=== PATIENT | female | born 1935 ===

== ENCOUNTER 2016-11-26 16:13 | Emergency (ER) | payer MEDICARE, MEDICAID ==
[2015-05-23 12:14] VITALS: BMI 21.5
[2016-11-26 21:52] LABS: ALB/GLOB RATIO 1.5 (1.0-2.1); ALKALINE PHOSPHATASE 135 U/L (38-126); ALT/SGPT 88 U/L (9-52); AST/SGOT 80 U/L (14-36); BILIRUBIN,TOTAL 0.5 mg/dL (0.2-1.3); BLOOD UREA NITROGEN 28 mg/dL (7-17); CALCIUM 8.3 mg/dl (8.6-10.4); CARBON DIOXIDE 23 mmol/L (22-30); CHLORIDE 94 mmol/L (98-107); GFR AFRICAN-AMERICAN 52; GLUCOSE,RANDOM 116 mg/dL (65-105); POTASSIUM 3.4 mmol/L (3.6-5.2); SODIUM 129 mmol/L (132-148); TOTAL PROTEIN 6.7 g/dL (6.3-8.3)
[2016-11-26 21:58] LABS: BASO # 0.1 K/uL (0.0-0.2); BASO % 0.6 % (0.0-2.0); EOS # 0.1 K/uL (0.0-0.7); EOS % 0.9 % (0.0-4.0); HEMATOCRIT 31.1 % (34.0-47.0); LYMPH # 1.7 K/uL (1.0-4.3); LYMPH % 15.2 % (20.0-40.0); MEAN CELL VOLUME 82.6 fL (81.0-99.0); MEAN CORPUSCULAR HGB CONC 32.8 g/dL (33.0-37.0); MONO # 0.9 K/uL (0.0-0.8); RED CELL DISTRIBUTION WIDTH 15.2 % (11.5-14.5); WHITE BLOOD COUNT 10.9 K/uL (4.8-10.8)
[2016-11-27 06:03] LABS: URINE BILIRUBIN NEGATIVE (NEGATIVE); URINE BLOOD NEGATIVE (NEGATIVE); URINE COLOR YELLOW (YELLOW); URINE GLUCOSE (UA) Normal (Normal); URINE KETONE NEGATIVE (NEGATIVE); URINE LEUKOCYTE ESTERASE NEGATIVE Leu/uL (Negative); URINE PROTEIN NEGATIVE (NEGATIVE); URINE UROBILINOGEN Normal mg/dL (0.2-1.0); WBC URINE 1 /hpf (0-5)
--- NOTE | 2016-11-27 10:13 | RAD ---
PROCEDURE: CHEST RADIOGRAPH, 1 VIEW HISTORY: SOB COMPARISON: 02/19/2011 FINDINGS: LUNGS: No infiltrate. Calcified granuloma at right base. PLEURA: No pneumothorax or pleural fluid seen. CARDIOVASCULAR: Normal. OSSEOUS STRUCTURES: No significant abnormalities. VISUALIZED UPPER ABDOMEN: Normal. OTHER FINDINGS: None. IMPRESSION: No active disease.
== END 2016-11-26 20:35 | disposition home or self-care (01) ==
LOC: C.ER 16:13
DX: R06.09 Other forms of dyspnea (principal); R06.01 Orthopnea
CPT/HCPCS: 71010; 80053; 81001; 82550; 83880; 84484; 85025; 85610; 85730; 96374; 99285; J1940

== ENCOUNTER 2017-08-14 11:22 | Emergency (ER) | payer MEDICARE, MEDICAID ==
[2017-08-14 11:23] VITALS: BMI 21.5
[2017-08-14 11:28] VITALS: RESP 18
[2017-08-14] MEDS ORDERED: Sucralfate 1 gm/10 ml Oral Susp UD PO STA (11:48)
[2017-08-14] MEDS ORDERED: Sodium Chloride 0.9% 1,000 ML IV ONE (11:49)
--- NOTE | 2017-08-14 11:53 | C.PDOC ---
History Of Present Illness 81 yr old female with PMHx of reflux, presents to the ER with upper abdomen pain , nausea, diarrhea and sore throat since yesterday., Patient believes the sore throat is due to reflux. Patient reports she was on Prevacid but was told not to take it anymore by her PMD due to kidney function and was put on pepcid but reports no help. Patient denies fever, chills, chest pain, SOB, vomiting, dysuria, weakness or numbness. Time Seen by Provider: 08/14/17 11:31 Chief Complaint (Nursing): Abdominal Pain History Per: Patient History/Exam Limitations: no limitations Onset/Duration Of Symptoms: Days (1) Past Medical History Reviewed: Historical Data, Nursing Documentation, Vital Signs Vital Signs: Last Vital Signs Temp 97.8 F 08/14/17 13:14 Pulse 51 L 08/14/17 13:14 Resp 18 08/14/17 13:14 BP 150/69 08/14/17 13:14 Pulse Ox 96 08/14/17 13:14 - Medical History PMH: Diabetes, HTN, Hypercholesterolemia - [facility] Procedures ENDO EXCISION/DEST OF LESION OR TISSUE OF STOMACH (12/07/13) Family History: States: No Known Family Hx - Social History Hx Tobacco Use: No Hx Alcohol Use: No Hx Substance Use: No - Immunization History Hx Tetanus Toxoid Vaccination: No Hx Influenza Vaccination: No Hx Pneumococcal Vaccination: Yes Review Of Systems Except As Marked, All Systems Reviewed And Found Negative. Constitutional: Negative for: Fever, Chills ENT: Positive for: Throat Pain (sore throat) Cardiovascular: Negative for: Chest Pain Respiratory: Negative for: Shortness of Breath Gastrointestinal: Positive for: Nausea, Abdominal Pain (upper abdomin), Diarrhea. Negative for: Vomiting Genitourinary: Negative for: Dysuria Neurological: Negative for: Weakness, Numbness Physical Exam - Physical Exam Appears: Non-toxic, No Acute Distress Skin: Warm, Dry, No Rash Eye(s): bilateral: Normal Inspection, PERRL, EOMI Oral Mucosa: Moist Throat: Normal, No Erythema, No Exudate, No Drooling Cardiovascular: Rhythm Regular, No Murmur Respiratory: Normal Breath Sounds, No Rales, No Rhonchi, No Wheezing Gastrointestinal/Abdominal: Soft, Tenderness (mild epigastric), No Guarding, No Rebound Extremity: Normal ROM, No Swelling Neurological/Psych: Oriented x3, Normal Speech, Normal Motor, Normal Sensation ED Course And Treatment - Laboratory Results Result Diagrams: 08/14/17 12:05 08/14/17 12:05 Lab Interpretation: No Acute Changes ECG: Interpreted By Me ECG Rhythm: Sinus Bradycardia ECG Interpretation: No Acute Changes Rate From EC O2 Sat by Pulse Oximetry: 97 (RA) Pulse Ox Interpretation: Normal Progress Note: Treated with IVF NSS, pepcid and carafate. On re-evaluation feeling better. On rer-evaluation abdomen soft non-tender Reassessment Condition: Improved Medical Decision Making Medical Decision Making: PLAN: * EKG * Labs * Urinalysis * Carafate PO * Pepcid IVP * Sodium Chloride IV Disposition Counseled Patient/Family Regarding: Studies Performed, Diagnosis, Need For Followup, Rx Given - Disposition Referrals: [email or web address] [Outside] [facility] [Outside] Disposition: HOME/ ROUTINE Disposition Time: 13:00 Condition: STABLE Additional Instructions: Follow up with your senior outside sales representative for further evaluation Prescriptions: Sucralfate [Carafate] 1 gm PO TID #200 dose Instructions: Gastritis (ED), Diet for Ulcers and Gastritis (ED) Forms: [employer] (Occitan) Print Language: FRISIAN - POA Present On Arrival: None - Clinical Impression Clinical Impression: Gastroesophageal reflux disease, Gastritis - 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 - Scribe Statement The provider has reviewed the documentation as recorded by the Scribe Pippa Jones All medical record entries made by the Scribe were at my direction and personally dictated by me. I have reviewed the chart and agree that the record accurately reflects my personal performance of the history, physical exam, medical decision making, and the department course for this patient. I have also personally directed, reviewed, and agree with the discharge instructions and disposition.
[2017-08-14 12:09] LABS: BASO % 0.3 % (0.0-2.0); EOS # 0.1 K/uL (0.0-0.7); EOS % 0.7 % (0.0-4.0); LYMPH % 26.1 % (20.0-40.0); MEAN CELL VOLUME 82.2 fL (81.0-99.0); MEAN CORPUSCULAR HEMOGLOBIN 28.3 pg (27.0-31.0); MEAN CORPUSCULAR HGB CONC 34.4 g/dL (33.0-37.0); MEAN PLATELET VOLUME 7.6 fL (7.2-11.7); MONO # 0.6 K/uL (0.0-0.8); MONO % 8.3 % (0.0-10.0); NEUT % 64.6 % (50.0-75.0); NRBC % 0.1 % (0.0-2.0); RBC 4.69 Mil/uL (3.80-5.20); RED CELL DISTRIBUTION WIDTH 14.6 % (11.5-14.5); WHITE BLOOD COUNT 7.7 K/uL (4.8-10.8)
[2017-08-14 12:10] LABS: HEMOGLOBIN 13.3 g/dL (11.0-16.0)
[2017-08-14] MEDS ORDERED: Sodium Chloride 0.9% 1,000 ML ONE (12:14)
[2017-08-14] MEDS ORDERED: Sucralfate 1 gm/10 ml Oral Susp UD ONE (12:14)
[2017-08-14 12:25] LABS: ALB/GLOB RATIO 1.2 (1.0-2.1); CALCIUM 9.4 mg/dl (8.6-10.4)
[2017-08-14 12:27] LABS: SQUAMOUS EPITHIAL 6 /hpf (0-5); URINE BACTERIA OCC (<OCC); URINE BILIRUBIN NEGATIVE (NEGATIVE); URINE BLOOD NEGATIVE (NEGATIVE); URINE CLARITY Hazy (Clear); URINE COLOR Yellow (YELLOW); URINE GLUCOSE (UA) NORMAL (Normal); URINE LEUKOCYTE ESTERASE NEG Leu/uL (Negative); URINE NITRATE NEGATIVE (NEGATIVE); URINE PROTEIN 1+ mg/dL (NEGATIVE); URINE UROBILINOGEN NORMAL mg/dL (0.2-1.0)
[2017-08-14 13:51] VITALS: BP 165/69; PULSE 53; TEMP 97.6; O2SAT 98
--- NOTE | 2017-08-18 14:12 | CARD ---
APPROVED REPORT EKG Measurement Heart [id number] 150P-13 [id number] <Conclusion> Sinus bradycardia Moderate voltage criteria for LVH, may be normal variant Cannot rule out Septal infarct, age undetermined Abnormal ECG
== END 2017-08-14 14:05 | disposition home or self-care (01) ==
LOC: C.ER 11:22
DX: K21.9 Gastro-esophageal reflux disease without esophagitis (principal); K29.70 Gastritis, unspecified, without bleeding
CPT/HCPCS: 80053; 81001; 83690; 85025; 87070; 87430; 96361; 96374; 99285; J7040

== ENCOUNTER 2017-09-15 09:33 | Emergency (ER) | payer MEDICARE, MEDICAID ==
[2017-09-15 09:34] VITALS: BMI 21.5
[2017-09-15 09:49] VITALS: BP 158/74; PULSE 83; RESP 18; TEMP 98.5; O2SAT 98
[2017-09-15 10:22] LABS: SQUAMOUS EPITHIAL 7 /hpf (0-5); URINE BACTERIA RARE (<OCC); URINE BILIRUBIN NEGATIVE (NEGATIVE); URINE BLOOD NEGATIVE (NEGATIVE); URINE CLARITY Clear (Clear); URINE COLOR Yellow (YELLOW); URINE GLUCOSE (UA) NORMAL (Normal); URINE LEUKOCYTE ESTERASE NEG Leu/uL (Negative); URINE PROTEIN NEGATIVE (NEGATIVE); URINE UROBILINOGEN NORMAL mg/dL (0.2-1.0)
--- NOTE | 2017-09-15 10:27 | C.PDOC ---
History Of Present Illness 81 y/o female presents to the ER complaining of nasal congestion,mild sore throat, and body aches which have been present since yesterday. Patient states that she also had "foul-smelling" urine in the morning today. Patient denies having nausea, vomiting, and diarrhea. Time Seen by Provider: 09/15/17 09:56 Chief Complaint (Nursing): Flu-like Symptoms History Per: Patient History/Exam Limitations: no limitations Onset/Duration Of Symptoms: Days Current Symptoms Are (Timing): Still Present Severity: Moderate Past Medical History Reviewed: Historical Data, Nursing Documentation, Vital Signs Vital Signs: Last Vital Signs Temp 98.5 F 09/15/17 09:45 Pulse 83 09/15/17 09:45 Resp 18 09/15/17 10:32 BP 158/74 H 09/15/17 09:45 Pulse Ox 98 09/15/17 11:19 - Medical History PMH: Diabetes, HTN, Hypercholesterolemia Other Surgeries: Hx of surgeries - [facility] Procedures ENDO EXCISION/DEST OF LESION OR TISSUE OF STOMACH (12/07/13) Family History: States: No Known Family Hx - Social History Hx Tobacco Use: No Hx Alcohol Use: No Hx Substance Use: No - Immunization History Hx Tetanus Toxoid Vaccination: Yes Hx Influenza Vaccination: Yes Hx Pneumococcal Vaccination: Yes Review Of Systems Except As Marked, All Systems Reviewed And Found Negative. Constitutional: Positive for: Malaise. Negative for: Fever, Chills ENT: Positive for: Throat Pain Gastrointestinal: Negative for: Nausea, Vomiting, Diarrhea Physical Exam - Physical Exam Appears: Non-toxic, No Acute Distress Skin: Normal Color, Warm Head: Atraumatic, Normacephalic Eye(s): bilateral: Normal Inspection Ear(s): Bilateral: Normal Nose: Other (mild nasal erythema) Oral Mucosa: Moist Throat: Normal, No Erythema, No Exudate Neck: Supple Chest: Symmetrical Cardiovascular: Rhythm Regular Respiratory: Normal Breath Sounds, No Accessory Muscle Use, No Rales, No Rhonchi , No Wheezing Extremity: Normal ROM Neurological/Psych: Oriented x3, Normal Speech, Normal Motor, Normal Sensation ED Course And Treatment O2 Sat by Pulse Oximetry: 98 (RA) Pulse Ox Interpretation: Normal Progress Note: UA ordered. Patient given Tylenol PO. Medical Decision Making Medical Decision Making: mild viral syndrome Normal urine Patient has been told to follow Ibuprofen or Tylenol as necessary. Disposition Doctor Will See Patient In The: Office Counseled Patient/Family Regarding: Studies Performed, Diagnosis - Disposition Referrals: Taiwo Muniz [Medical Doctor] - Disposition: HOME/ ROUTINE Disposition Time: 10:27 Condition: GOOD Additional Instructions: sigue tylenol 1000 mg cada 6 horas o' ibuprofeno 400-600 mg cada 6 horas jason necessario [place] orina salio NORMAL Instructions: Viral Syndrome (DC) Forms: [employer] (Bhutanese) Print Language: FRENCH - Clinical Impression Clinical Impression: Viral syndrome - Scribe Statement The provider has reviewed the documentation as recorded by the Dottyibe Loco Foreman Provider Attestation: All medical record entries made by the Scribe were at my direction and personally dictated by me. I have reviewed the chart and agree that the record accurately reflects my personal performance of the history, physical exam, medical decision making, and the department course for this patient. I have also personally directed, reviewed, and agree with the discharge instructions and disposition.
== END 2017-09-15 10:32 | disposition home or self-care (01) ==
LOC: C.ER 09:33
DX: B34.9 Viral infection, unspecified (principal)